=== PATIENT | male | born 1950 | race Caucasian/White ===

== ENCOUNTER 2022-05-24 14:37 | Emergency (ER) | payer SELFPAY ==
[~2022-05-24] VITALS: Ht 165 cm; Wt 58.9 kg
--- NOTE | 2022-05-24 14:43 | ED GI ---
General Chief Complaint: Abdominal/GI Problems Stated Complaint: ABD PAIN Source of Information: Patient, EMS Exam Limitations: No Limitations History of Present Illness Date Seen by Provider: May 24, 2022 Time Seen by Provider: 14:35 Initial Comments Patient is an elderly 72-year-old male with a history of tobacco abuse and alcohol abuse who presents to the emergency room by EMS with a complaint of 5 days of nausea and vomiting. Patient states that he has not been able to hold anything down over the last 5 days. He has vomited too many times to count today. He denies initially that there was any blood in his vomit or recent blood in his stools. He denies diarrhea. No fevers or chills. No productive cough. No problems with urination. Patient states that he was formally a very heavy drinker and he quit about 2 months ago. He states that he knew "it was time". He states that he takes no daily medications. The last time he saw Was about a year ago when he had COVID. He has not sought treatment for any of his symptoms nor has he taken any medications [id number] for his symptoms this week. He denies currently any abdominal pain. He was treated with 4 mg of Zofran prior to arrival. Awake, alert and oriented. It does appear that he has some bloody emesis in the hairs of his chin. Timing/Duration: 1 Week Severity/Quality: Severe Associated Symptoms: Nausea/Vomiting, Swelling/Mass in Abdomen, Weakness, Other (edema) Allergies and Home Medications Allergies Coded Allergies: No Known Drug Allergies (Unverified , 05/24/22) Patient Home Medication List Home Medication List Reviewed: Yes Review of Systems Review of Systems Constitutional: see HPI Respiratory: No Symptoms Reported Cardiovascular: No Symptoms Reported Gastrointestinal: Abdomen Distended; Denies Diarrhea; Nausea, Vomiting Genitourinary: No Symptoms Reported Musculoskeletal: no symptoms reported Skin: no symptoms reported All Other Systems Reviewed Negative Unless Noted: Yes Physical Exam Vital Signs Vital Signs - First Documented 05/24/22 14:38 Temp 36.6 Pulse 114 Resp 18 B/P (MAP) 112/74 (87) Pulse Ox 99 O2 Delivery Room Air Capillary Refill : Less Than 3 Seconds Height/Weight/BMI Height: '" Weight: lbs. oz. kg; 21.00 BMI Method: General Appearance: WD/WN, no apparent distress, cachetic, other (abdominal distension; appears chronially ill) HEENT: scleral icterus (R), scleral icterus (L), other (Dry oral mucosa; pharyngeal erythema; dried blood appears to be in mouth/on araujo) Neck: full range of motion Respiratory: no respiratory distress, no accessory muscle use, decreased breath sounds (throughout) Cardiovascular: regular rate, rhythm, no murmur, tachycardia (115) Gastrointestinal: soft, abnormal bowel sounds (Slightly hyperactive), distended (Somewhat firm), tenderness (RUQ and epigastrum - mild discomfort - patient denies "Pain"), other (No tenderness over the liver, liver margin is difficult to palpate) Extremities: normal range of motion, normal inspection, no calf tenderness, normal capillary refill, pedal edema (3+) Neurologic/Psychiatric: no motor/sensory deficits, alert, normal mood/affect, oriented x 3 Skin: warm/dry, pallor (jaundice) Procedures/Interventions Lumen: triple Central Line Procedure: betadine prep, sterile drapes applied, sterile dressing applied Position: internal jugular (R) Anesthesia: Lidocaine Volume Anesthetic (ccs): 2 Complications: none Post Position: sutured, good blood return, position confirmed w/ CXR Progress/Results/Core Measures Results/Orders Lab Results Laboratory Tests Test 05/24/22 14:44 05/24/22 15:04 05/24/22 15:14 05/24/22 15:40 Range/Units White Blood Count 13.1 H 4.3-11.0 10^3/uL Red Blood Count 5.29 4.30-5.52 10^6/uL Hemoglobin 18.1 H 13.3-17.7 g/dL Hematocrit 49 40-54 % Mean Corpuscular Volume 93 80-99 fL Mean Corpuscular Hemoglobin 34 25-34 pg Mean Corpuscular Hemoglobin Concent 37 H 32-36 g/dL Red Cell Distribution Width 12.3 10.0-14.5 % Platelet Count 185 130-400 10^3/uL Mean Platelet Volume 9.0 9.0-12.2 fL Immature Granulocyte % (Auto) 2 % Neutrophils (%) (Auto) 79 H 42-75 % Lymphocytes (%) (Auto) 5 L 12-44 % Monocytes (%) (Auto) 14 H 0-12 % Eosinophils (%) (Auto) 1 0-10 % Basophils (%) (Auto) 0 0-10 % Neutrophils # (Auto) 10.3 H 1.8-7.8 10^3/uL Lymphocytes # (Auto) 0.6 L 1.0-4.0 10^3/uL Monocytes # (Auto) 1.9 H 0.0-1.0 10^3/uL Eosinophils # (Auto) 0.1 0.0-0.3 10^3/uL Basophils # (Auto) 0.0 0.0-0.1 10^3/uL Immature Granulocyte # (Auto) 0.2 H 0.0-0.1 10^3/uL Neutrophils % (Manual) 86 % Lymphocytes % (Manual) 4 % Monocytes % (Manual) 9 % Eosinophils % (Manual) 0 % Basophils % (Manual) 0 % Band Neutrophils 1 % Blood Morphology Comment NORMAL Sodium Level 114 *L 135-145 MMOL/L Potassium Level 5.4 H 4.5 3.6-5.0 MMOL/L Chloride Level 76 L 98-107 MMOL/L Carbon Dioxide Level 19 L 21-32 MMOL/L Anion Gap 19 H 5-14 MMOL/L Blood Urea Nitrogen 19 H 7-18 MG/DL Creatinine 0.73 0.60-1.30 MG/DL Estimat Glomerular Filtration Rate 97 BUN/Creatinine Ratio 26 Glucose Level 93 70-105 MG/DL Calcium Level 9.6 8.5-10.1 MG/DL Corrected Calcium 10.6 H 8.5-10.1 MG/DL Total Bilirubin 4.5 H 0.1-1.0 MG/DL Aspartate Amino Transf (AST/SGOT) 63 H 5-34 U/L Alanine Aminotransferase (ALT/SGPT) 27 0-55 U/L Alkaline Phosphatase 655 H 40-136 U/L Total Protein 6.8 6.4-8.2 GM/DL Albumin 2.7 L 3.2-4.5 GM/DL Lipase 24 8-78 U/L Serum Alcohol < 10 <10 MG/DL Prothrombin Time 15.7 H 12.2-14.7 SEC INR Comment 1.2 0.8-1.4 Activated Partial Thromboplast Time 32 24-35 SEC Influenza Type A (RT-PCR) Not Detected Not Detecte Influenza Type B (RT-PCR) Not Detected Not Detecte SARS-CoV-2 RNA (RT-PCR) Not Detected Not Detecte Test 1/1/23 18:12 Range/Units White Blood Count 14.3 H 4.3-11.0 10^3/uL Red Blood Count 3.80 L 4.30-5.52 10^6/uL Hemoglobin 13.1 #L 13.3-17.7 g/dL Hematocrit 36 L 40-54 % Mean Corpuscular Volume 94 80-99 fL Mean Corpuscular Hemoglobin 34 25-34 pg Mean Corpuscular Hemoglobin Concent 37 H 32-36 g/dL Red Cell Distribution Width 12.3 10.0-14.5 % Platelet Count 182 130-400 10^3/uL Mean Platelet Volume 9.8 9.0-12.2 fL Immature Granulocyte % (Auto) 2 % Neutrophils (%) (Auto) 71 42-75 % Lymphocytes (%) (Auto) 6 L 12-44 % Monocytes (%) (Auto) 21 H 0-12 % Eosinophils (%) (Auto) 1 0-10 % Basophils (%) (Auto) 0 0-10 % Neutrophils # (Auto) 10.1 H 1.8-7.8 10^3/uL Lymphocytes # (Auto) 0.8 L 1.0-4.0 10^3/uL Monocytes # (Auto) 3.0 H 0.0-1.0 10^3/uL Eosinophils # (Auto) 0.1 0.0-0.3 10^3/uL Basophils # (Auto) 0.0 0.0-0.1 10^3/uL Immature Granulocyte # (Auto) 0.3 H 0.0-0.1 10^3/uL Sodium Level 117 *L 135-145 MMOL/L Potassium Level 4.4 3.6-5.0 MMOL/L Chloride Level 83 L 98-107 MMOL/L Carbon Dioxide Level 19 L 21-32 MMOL/L Anion Gap 15 H 5-14 MMOL/L Blood Urea Nitrogen 19 H 7-18 MG/DL Creatinine 0.66 0.60-1.30 MG/DL Estimat Glomerular Filtration Rate 100 BUN/Creatinine Ratio 29 Glucose Level 97 70-105 MG/DL Calcium Level 7.8 L 8.5-10.1 MG/DL My Orders Orders - JUSTINE SALAS MD Ed Iv/Invasive Line Start (05/24/22 14:46) Cbc With Automated Diff (05/24/22 14:46) Comprehensive Metabolic Panel (05/24/22 14:46) Protime With Inr (05/24/22 14:46) Partial Thromboplastin Time (05/24/22 14:46) Alcohol (05/24/22 14:46) Lipase (05/24/22 14:46) Ns Iv 1000 Ml (Sodium Chloride 0.9%) (05/24/22 15:00) Ondansetron Injection (Zofran Injectio (05/24/22 15:00) Manual Differential (05/24/22 14:44) Covid 19 Inhouse Test (05/24/22 15:17) Influenza A And B By Pcr (05/24/22 15:17) Isolation Central Supply Req (05/24/22 15:17) Ns Iv 1000 Ml (Sodium Chloride 0.9%) (05/24/22 15:17) Chest 1 View, Ap/Pa Only (05/24/22 15:35) Pantoprazole Injection (Protonix Injecti (05/24/22 15:45) Ondansetron Injection (Zofran Injectio (05/24/22 15:45) Potassium (05/24/22 15:14) Ceftriaxone 1 Gm Pre-Mix (Rocephin 1 Gm (05/24/22 17:00) Lactated Ringers (Lr 1000 Ml Iv Solution (05/24/22 17:00) Thiamine Injection (Vitamin B-1 Injectio (05/25/22 09:00) Octreotide Injection (Sandostatin Inje (05/24/22 17:15) Cbc With Automated Diff (05/24/22 17:57) Basic Metabolic Panel (05/24/22 17:57) Type And Screen (05/24/22 18:42) Red Cells Leukocytes Reduced (05/24/22 18:42) Lactated Ringers (Lr 1000 Ml Iv Solution (05/24/22 19:00) Chest 1 View, Ap/Pa Only (05/24/22 19:20) Ns (Ivpb) (Sodium C... W/Octreotide Inj (05/24/22 20:15) Medications Given in ED Current Medications Medications Dose Ordered Sig/Brandon Route Start Time Stop Time Status Last Admin Dose Admin Ceftriaxone Sodium/Dextrose 50 ml @ 100 mls/hr ONCE ONCE IV 05/24/22 17:00 05/24/22 17:29 DC 05/24/22 17:24 100 MLS/HR Octreotide Acetate 100 mcg ONCE ONCE SC 05/24/22 17:15 05/24/22 17:16 DC 05/24/22 17:53 100 MCG Ondansetron HCl 4 mg ONCE ONCE IVP 05/24/22 15:00 05/24/22 15:01 DC 05/24/22 14:58 4 MG Ondansetron HCl 4 mg ONCE ONCE IVP 05/24/22 15:45 05/24/22 15:46 DC 05/24/22 16:33 4 MG Pantoprazole 80 mg ONCE ONCE IV 05/24/22 15:45 05/24/22 15:46 DC 05/24/22 16:07 80 MG Vital Signs/I&O 05/24/22 14:38 Temp 36.6 Pulse 114 Resp 18 B/P (MAP) 112/74 (87) Pulse Ox 99 O2 Delivery Room Air Progress Progress Note #1: Time: 18:46 Progress Note Serial reevaluations on Cal throughout his stay in the ED, he had multiple episodes of hematemesis, 4. His blood pressure has gone in the last 30 minutes from 120 systolic to 86. He has had 2 L of normal saline, 1 L of LR. He has had octreotide, Protonix and Zofran. I am going to go ahead and put in a central line right IJ. Patient has consented. He remains tachycardic at 114. His hemoglobin repeat as requested by the ICU physician at [facility] Dr. Salazar is down from 18-13. Pending sodium repeat. He is not having any pain, remains a little nauseous. 1 unit of packed red blood cells has been ordered. He is still alert and oriented. Oxygen saturations are normal. Progress Note #2: Time: 20:03 Progress Note Discussed with ICU doc, Margaux Griffiths; accepts patient. now pending bed placement. Doc requests octreotide drip. Diagnostic Imaging Diagonstic Imaging: Xray Plain Films/CT/US/NM/MRI: chest Comments [facility], [place] NAME: CAL AYON [facility] REC#: [id number] PT STATUS: REG ER : 1950 PHYSICIAN: JUSTINE SALAS MD ADMIT DATE: 05/24/22/ER Signed Date of Exam:05/24/22 CHEST 1 VIEW, AP/PA ONLY EXAMINATION: Chest 1 view. HISTORY: Vomiting. COMPARISON: None available. FINDINGS: There is left suprahilar and left upper zone airspace opacity. There is right lower zone airspace opacity. There is a small right effusion. No pneumothorax. Heart size is normal. IMPRESSION: Left suprahilar and right lower zone airspace opacities with a small right effusion. Findings favored to reflect pneumonia. Follow-up to ensure resolution is recommended. Dictated by: Dictated on workstation # [id number] Dict: 05/24/22 1550 Trans: 05/24/22 1606 PJE [id number] Interpreted by: ZA LOVETT MD Electronically signed by: ZA LOVETT MD 05/24/22 1606 Diagonstic Imaging: Xray Plain Films/CT/US/NM/MRI: chest Comments central line CXR: line in place; lung is intact (interpreted by me) Critical Care Note Critical Care Start Time: 14:35 Stop Time: 19:00 Departure Impression Primary Impression: GI bleed Qualified Codes: K92.0 - Hematemesis Additional Impressions: Alcoholic hepatitis Qualified Codes: K70.10 - Alcoholic hepatitis without ascites Pneumonia Qualified Codes: J18.9 - Pneumonia, unspecified organism Hyponatremia Disposition: XFER SHT-TRM HOSP Condition: Stable Transfer Transfer Reason: Exceeds level of care Transfer Progress Notes Dr Cm - ICU [facility] Transfer Facility: [facility] Method of Transfer: EMS JUSTINE SALAS MD May 24, 2022 14:43
[2022-05-24 14:51] LABS: BASOPHILS % (AUTO) 0 % (0-10); EOSINOPHILS # (AUTO) 0.1 10^3/uL (0.0-0.3); EOSINOPHILS % (AUTO) 1 % (0-10); HEMATOCRIT 49 % (40-54); HEMOGLOBIN 18.1 g/dL (13.3-17.7); LYMPHOCYTES # (AUTO) 0.6 10^3/uL (1.0-4.0); LYMPHOCYTES % (AUTO) 5 % (12-44); MEAN CORPUSCULAR HEMOGLOBIN 34 pg (25-34); MEAN CORPUSCULAR HGB CONC 37 g/dL (32-36); MEAN CORPUSCULAR VOLUME 93 fL (80-99); MONOCYTES # (AUTO) 1.9 10^3/uL (0.0-1.0); MONOCYTES % (AUTO) 14 % (0-12); NEUTROPHILS # (AUTO) 10.3 10^3/uL (1.8-7.8); NEUTROPHILS % (AUTO) 79 % (42-75); PLATELET COUNT 185 10^3/uL (130-400); WHITE BLOOD COUNT 13.1 10^3/uL (4.3-11.0)
[2022-05-24] MEDS ORDERED: ONDANSETRON 4 MG/2 ML (SDV) Z0FRAN IVP ONE ×2 (15:00→15:45)
[2022-05-24] MEDS ORDERED: NS IV 1000 ML 1,000 ML IV SCH (15:00)
[2022-05-24 15:01] LABS: ALBUMIN 2.7 GM/DL (3.2-4.5); CHLORIDE 76 MMOL/L (98-107)
[2022-05-24 15:02] LABS: CALCIUM 9.6 MG/DL (8.5-10.1)
[2022-05-24 15:04] LABS: GLUCOSE 93 MG/DL (70-105); TOTAL PROTEIN 6.8 GM/DL (6.4-8.2)
[2022-05-24 15:05] LABS: BILIRUBIN,TOTAL 4.5 MG/DL (0.1-1.0); CARBON DIOXIDE 19 MMOL/L (21-32)
[2022-05-24 15:07] LABS: ALKALINE PHOSPHATASE 655 U/L (40-136); CREATININE SERUM 0.73 MG/DL (0.60-1.30); GFR ESTIMATED 97
[2022-05-24 15:08] LABS: BUN/CREATININE RATIO 26
[2022-05-24 15:10] LABS: ALANINE AMINOTRANSFERASE 27 U/L (0-55)
[2022-05-24 15:11] LABS: LIPASE 24 U/L (8-78)
[2022-05-24 15:12] LABS: SODIUM 114 MMOL/L (135-145)
[2022-05-24 15:13] LABS: POTASSIUM 5.4 MMOL/L (3.6-5.0)
[2022-05-24] MEDS ORDERED: NS IV 1000 ML 1,000 ML IV STA (15:17)
[2022-05-24 15:22] LABS: BAND NEUTROPHILS 1 %; BASOPHILS % (MANUAL) 0 %; EOSINOPHILS % (MANUAL) 0 %; LYMPHOCYTES % (MANUAL) 4 %; MONOCYTES % (MANUAL) 9 %; NEUTROPHILS % (MANUAL) 86 %; RBC MORPH NORMAL
[2022-05-24 15:28] LABS: INR 1.2 (0.8-1.4); PROTHROMBIN TIME PATIENT 15.7 SEC (12.2-14.7)
[2022-05-24] MEDS ORDERED: PANTOPRAZOLE 40 MG (PROTONIX) VIAL IV ONE (15:45)
--- NOTE | 2022-05-24 15:54 | Diagnostic Imaging Report ---
EXAMINATION: Chest 1 view. HISTORY: Vomiting. COMPARISON: None available. FINDINGS: There is left suprahilar and left upper zone airspace opacity. There is right lower zone airspace opacity. There is a small right effusion. No pneumothorax. Heart size is normal. IMPRESSION: Left suprahilar and right lower zone airspace opacities with a small right effusion. Findings favored to reflect pneumonia. Follow-up to ensure resolution is recommended. Dictated by: Dictated on workstation # [id number]
[2022-05-24] MEDS ORDERED: LACTATED RINGERS 1,000 ML IV SCH ×2 (17:00→19:00)
[2022-05-24] MEDS ORDERED: cefTRIAXone 1 GM PRE-MIX 50 ML IV ONE (17:00)
[2022-05-24] MEDS ORDERED: OCTREOTIDE (FOR SQ USE) 100 MCG/ML VIAL (SandoSTATIN) SC ONE (17:15)
[2022-05-24 18:19] LABS: BASOPHILS % (AUTO) 0 % (0-10); EOSINOPHILS # (AUTO) 0.1 10^3/uL (0.0-0.3); EOSINOPHILS % (AUTO) 1 % (0-10); HEMATOCRIT 36 % (40-54); HEMOGLOBIN 13.1 g/dL (13.3-17.7); LYMPHOCYTES # (AUTO) 0.8 10^3/uL (1.0-4.0); LYMPHOCYTES % (AUTO) 6 % (12-44); MEAN CORPUSCULAR HEMOGLOBIN 34 pg (25-34); MEAN CORPUSCULAR HGB CONC 37 g/dL (32-36); MEAN CORPUSCULAR VOLUME 94 fL (80-99); MEAN PLATELET VOLUME 9.8 fL (9.0-12.2); MONOCYTES % (AUTO) 21 % (0-12); NEUTROPHILS # (AUTO) 10.1 10^3/uL (1.8-7.8); NEUTROPHILS % (AUTO) 71 % (42-75); PLATELET COUNT 182 10^3/uL (130-400); WHITE BLOOD COUNT 14.3 10^3/uL (4.3-11.0)
[2022-05-24 18:42] LABS: POTASSIUM 4.4 MMOL/L (3.6-5.0)
[2022-05-24 18:43] LABS: CALCIUM 7.8 MG/DL (8.5-10.1)
[2022-05-24 18:47] LABS: CREATININE SERUM 0.66 MG/DL (0.60-1.30)
[2022-05-24 20:10] VITALS: BP 84/57
--- NOTE | 2022-05-24 20:10 | Diagnostic Imaging Report ---
INDICATION: Central line placement. COMPARISON: Imaging from the same date. TECHNIQUE: Single radiograph of the chest dated May 24, 2022. FINDINGS: Interval placement of a right IJ central venous catheter with the distal tip extending to the lower aspect of the superior vena cava. No pneumothorax. The cardiac silhouette is within normal limits in size. No significant pulmonary vascular congestion. Worsening focal infiltrate within the left upper lung. Small right basilar pleural-parenchymal opacity is also present, slightly worsened since the prior examination. No significant left pleural effusion. No left pneumothorax. Osseous structures appear stable. IMPRESSION: Interval placement of a right IJ central venous catheter with the distal tip extending to overlie the lower aspect of the superior vena cava without pneumothorax. Worsening left upper lung infiltrate with associated worsening small right basilar pleural-parenchymal opacity. Dictated by: Dictated on workstation # [id number]
[2022-05-24] MEDS ORDERED: OCTREOTIDE INJECTION 500 MCG in NS (IVPB) 99 ML IV SCH (20:15)
[2022-05-24] MEDS ORDERED: NS IV 1000 ML 1,000 ML ONE (21:38)
[2022-05-25] MEDS ORDERED: THIAMINE INJECTION 100 MG, FOLIC ACID INJECTION 1 MG in NS (IVPB) 50 ML IV SCH (09:00)
== END 2022-05-24 21:45 | disposition short-term general hospital (02) ==
LOC: EDUNIT# 14:37 → ER 14:38
DX: K92.2 Gastrointestinal hemorrhage, unspecified (principal); K70.10 Alcoholic hepatitis without ascites; J18.9 Pneumonia, unspecified organism; E87.1 Hypo-osmolality and hyponatremia; Z86.16 Personal history of COVID-19; Z20.822 Contact with and (suspected) exposure to COVID-19
CPT/HCPCS: 71045; 80048; 80053; 83690; 85007; 85025; 85027; 85610; 85730; 86850; 86900; 86901; 86920; 87636; 99285; G0480; 36415; 80320; 84132